=== PATIENT | male | born 1990 | race Caucasian/White ===

== ENCOUNTER 2016-11-20 10:21 | Day surgery (SDC) | payer OTHER ==
[~2016-11-20] VITALS: Ht 180.3 cm; Wt 111.1 kg
[~2016-11-20 10:21] MED LIST: Sodium Chloride LOK Flush 10 mL Syringe IV PRN; fentaNYL-PF 50 mCg/mL 2 mL Inj IVPUSH PRN
[2016-11-20 10:32] VITALS: BP 141/101; PULSE 104; RESP 16; O2SAT 98
[2016-11-20] MEDS: 0.9% Sodium Chloride 1,000 ML IV PRN ×3 (10:36→11:13)
[2016-11-20 11:21] VITALS: BP 124/80; PULSE 90; RESP 16; O2SAT 98
[2016-11-20 11:27] VITALS: BP 144/85; PULSE 83; RESP 16; O2SAT 96
--- NOTE | 2016-11-20 21:45 | ENDO ---
[address] [address] ENDOSCOPY PROCEDURE PATIENT: BRANDIE ROSE : 1990 MR#: [id number] ADMIT: 11/20/2016 JOB ID: [id number] PRIMARY PROVIDER: Brody Molina MD PROCEDURE: Colonoscopy. INDICATIONS: A 26-year-old male with symptoms of altered bowel habit, abdominal pain. EQUIPMENT: PCF-H190DL SEDATION: 7 mg Versed, 175 mcg fentanyl. COMPLICATIONS: None identified. BOWEL PREPARATION: Fair, adequate exam. PROCEDURE INFORMATION: After the risks and benefits were explained, written and verbal informed consent was obtained, the patient was brought into the endoscopy suite and placed into the left lateral decubitus position. Sedation was achieved using the above-stated medications with the addition of oxygen via nasal cannula. A digital rectal examination was accomplished. No significant pathology appreciated. The scope was introduced into the rectum and advanced to the cecum as identified by the appendiceal orifice and ileocecal valve. The terminal ileum was briefly accessed, the scope then slowly withdrawn to carefully examine the mucosa for any defects or lesions. Multiple direct views were made through the dentate line for exclusion of pathology. The colon was decompressed. The scope removed from the patient who tolerated the procedure well. FINDINGS: No significant polyps, mass lesions, or inflammatory features identified throughout. The terminal ileum appeared visually normal. ENDOSCOPIC DIAGNOSIS: Visually normal colonoscopy. RECOMMENDATIONS: 1. Take 2 tablespoons of ground flaxseed fiber mixed with 8 ounces of water or juice at least once daily. 2. The patient is additionally encouraged to incorporate a regular portion of organic sauerkraut into his dietary stream. 3. Follow up on clinical results in GI clinic with Guy Swan in the next 4-6 weeks.
== END 2016-11-20 23:59 | disposition home or self-care (01) ==
LOC: END 10:21
PROVIDERS: ATTEND Internal Medicine Gastroenterology
DX: R19.4 Change in bowel habit (principal); R10.9 Unspecified abdominal pain; F41.9 Anxiety disorder, unspecified; R39.15 Urgency of urination; R35.0 Frequency of micturition; Q60.2 Renal agenesis, unspecified